=== PATIENT | female | born 2000 | race Caucasian/White ===

== ENCOUNTER 2018-08-10 22:18 | Outpatient (CLI) | payer OTHER | END 2018-08-10 22:19 | disposition critical access hospital (66) | LOC: EMS 22:18 | PROVIDERS: ATTEND Surgery | DX: S61.512A Laceration without foreign body of left wrist, initial encounter (principal); W45.8XXA Other foreign body or object entering through skin, initial encounter; Y92.009 Unspecified place in unspecified non-institutional (private) residence as the place of occurrence of the external cause | CPT/HCPCS: A0425; A0429 ==

== ENCOUNTER 2018-08-10 22:34 | Emergency (ER) | payer OTHER ==
[2018-08-10 23:02] LABS: MUDS CUTOFF CONCENTRATIONS CUTOFF CONC BELOW:
[2018-08-10 23:05] LABS: BASOPHILS # (AUTO) 0.1 10^3/uL (0.0-0.1); BASOPHILS % (AUTO) 0.8 %; EOSINOPHILS # (AUTO) 0.1 10^3/uL (0.0-0.7); EOSINOPHILS % (AUTO) 0.8 %; HGB - HEMOGLOBIN 13.3 g/dL (12.0-16.0); LYMPHOCYTES # (AUTO) 1.8 10^3/uL (1.5-3.5); LYMPHOCYTES % (AUTO) 17.7 %; MEAN CORPUSCULAR HEMOGLOBIN 31.9 pg (27.0-31.0); MEAN CORPUSCULAR HGB CONC 35.2 g/dL (32.0-36.0); MEAN CORPUSCULAR VOLUME 90.6 fL (81.0-99.0); MEAN PLATELET VOLUME 7.5 fL (7.9-10.8); MONOCYTES # (AUTO) 0.6 10^3/uL (0.0-1.0); MONOCYTES % (AUTO) 6.1 %; NEUTROPHILS # (AUTO) 7.6 10^3/uL (1.5-6.6); NEUTROPHILS % (AUTO) 74.6 %; PLT - PLATELET COUNT 302 10^3/uL (130-450); RED BLOOD COUNT 4.17 10^6/uL (4.20-5.40); RED CELL DISTRIBUTION WIDTH 12.9 % (12.0-15.0); WHITE BLOOD COUNT 10.2 x10^3/uL (4.8-10.8)
[2018-08-10 23:09] LABS: HCG UR QUAL NEGATIVE
[2018-08-10 23:14] LABS: BUN - BLOOD UREA NITROGEN 10 mg/dL (6-20); CALCIUM 8.6 mg/dL (8.5-10.3); CARBON DIOXIDE - CO2 23 mmol/L (21-32); CHLORIDE 108 mmol/L (101-111); CREATININE 0.6 mg/dL (0.4-1.0); GFR - MDRD 127 (>89); GLUCOSE 134 mg/dL (70-100); SODIUM 136 mmol/L (135-145)
[2018-08-10 23:16] LABS: AMPHETAMINE SCREEN,URINE NEGATIVE (NEGATIVE); BENZODIAZEPINES SCREEN, URINE NEGATIVE (NEGATIVE); COCAINE SCREEN URINE NEGATIVE (NEGATIVE); METHADONE SCREEN, URINE NEGATIVE (NEGATIVE); METHAMPHETAMINES SCREEN, URINE NEGATIVE (NEGATIVE); OPIATE SCREEN, URINE NEGATIVE (NEGATIVE); OXYCODONE SCREEN, URINE NEGATIVE (NEGATIVE); PROPOXYPHENE SCREEN, URINE NEGATIVE (NEGATIVE); TRICYCLIC ANTIDEPRESSANT,URINE NEGATIVE (NEGATIVE)
--- NOTE | 2018-08-10 23:54 | ED Physician Documentation ---
PD HPI MHE - Stated complaint Stated Complaint: MHE - Chief complaint Chief Complaint: Laceration - History obtained from History obtained from: Patient, EMS, Police - History of Present Illness Primary symptom: Self harm - cut Timing - onset: Today Pain level now: 0 Similar symptoms before: Other (h/o cutting behavior) Recently seen: Not recently seen - Additional information Additional information: police were called by patient's roommate; per police report (copy provided to ED and is on chart), patient posted "suicidal-like posts on social media" including "photos of cut marin that she inflicted on herself." Police report also reads "She stated she has been depressed", and "she voluntarily wanted to go the hospital to receive assistance". Patient admits to self-inflicting left wrist cuts tonight. She says she has cut herself before. She denies suicidal intent on my HPI. Review of Systems Skin: reports: Laceration (s) (left wrist) Neurologic: denies: Focal weakness, Numbness Psychiatric: reports: Depressed. denies: Suicidal (denies on my HPI/ROS) PD PAST MEDICAL HISTORY - Past Medical History Past Medical History: Yes Psych: Depression, ADD/ADHD Other Past Medical History: Suicide attempt by cutting wrists - Past Surgical History Past Surgical History: No - Present Medications Home Medications: Ambulatory Orders Medication Instructions Recorded Confirmed Methylphenidate HCl [Concerta] 54 mg PO DAILY 07/30/15 08/10/18 Sertraline [Zoloft] 25 mg PO DAILY 07/30/15 08/10/18 Bcp 08/10/18 Loratadine 1 cap PO DAILY PRN 08/10/18 08/10/18 - Allergies Allergies/Adverse Reactions: Allergies Allergy/AdvReac Type Severity Reaction Status Date / Time No Known Drug Allergies Allergy Verified 08/10/18 22:43 - Social History Does the pt smoke?: No Smoking Status: Never smoker Does the pt drink ETOH?: No Does the pt have substance abuse?: No - Immunizations Immunizations are current?: Yes - POLST Patient has POLST: No PD ED PE NORMAL - Vitals Vital signs reviewed: Yes - General General: Alert and oriented X 3, No acute distress, Well developed/nourished, Other (calm, cooperative, ) - Cardiac Cardiac: RRR, No murmur - Respiratory Respiratory: No respiratory distress, Clear bilaterally - Derm Derm: Other (multiple superficial linear lacerations to volar survace of left wrist) Results - Vitals Vitals: Vital Signs - 24 hr 08/11/18 08/11/18 01:10 06:27 Heart Rate 70 69 Respiratory 16 16 Rate Blood Pressure 112/59 L 117/60 O2 Saturation 100 99 Oxygen O2 Source Room air - Labs Labs: Laboratory Tests 08/10/18 08/10/18 08/10/18 22:53 22:53 22:58 WBC 10.2 RBC 4.17 L Hgb 13.3 Hct 37.8 MCV 90.6 MCH 31.9 H MCHC 35.2 RDW 12.9 Plt Count 302 MPV 7.5 L Neut # (Auto) 7.6 H Lymph # (Auto) 1.8 [place] # (Auto) 0.6 Eos # (Auto) 0.1 Baso # (Auto) 0.1 Absolute Nucleated RBC 0.00 Nucleated RBC % 0.0 Sodium Potassium Chloride Carbon Dioxide Anion Gap BUN Creatinine Estimated GFR (MDRD) Glucose Calcium Ur Specific [place] 1.025 Urine HCG, Qual NEGATIVE Urine Opiates Screen NEGATIVE Ur Oxycodone Screen NEGATIVE Urine Methadone Screen NEGATIVE Ur Propoxyphene Screen NEGATIVE Ur Barbiturates Screen NEGATIVE Ur Tricyclics Screen NEGATIVE Ur Phencyclidine Scrn NEGATIVE Ur Amphetamine Screen NEGATIVE U Methamphetamines Scrn NEGATIVE U Benzodiazepines Scrn NEGATIVE Urine Cocaine Screen NEGATIVE U Cannabinoids Screen NEGATIVE Ethyl Alcohol 08/10/18 22:58 WBC RBC Hgb Hct MCV MCH MCHC RDW Plt Count MPV Neut # (Auto) Lymph # (Auto) [place] # (Auto) Eos # (Auto) Baso # (Auto) Absolute Nucleated RBC Nucleated RBC % Sodium 136 Potassium 3.6 Chloride 108 Carbon Dioxide 23 Anion Gap 5.0 L BUN 10 Creatinine 0.6 Estimated GFR (MDRD) 127 Glucose 134 H Calcium 8.6 Ur Specific [place] Urine HCG, Qual Urine Opiates Screen Ur Oxycodone Screen Urine Methadone Screen Ur Propoxyphene Screen Ur Barbiturates Screen Ur Tricyclics Screen Ur Phencyclidine Scrn Ur Amphetamine Screen U Methamphetamines Scrn U Benzodiazepines Scrn Urine Cocaine Screen U Cannabinoids Screen Ethyl Alcohol < 5.0 PD MEDICAL DECISION MAKING - ED course Complexity details: reviewed results, re-evaluated patient, considered differential, d/w patient, d/w family Departure - Departure Disposition: 01 Home, Self Care Clinical Impression: Superficial laceration, Stress reaction Condition: Stable Comments: Cleanse the abrasions with soap and water and apply ointment once or twice daily. Recheck if signs of infection. Follow-up with counseling and psychiatry numbers as referred by the social work lecturer. Return if needed. Call the crisis line if needed. Discharge Date/Time: 08/11/18 12:00
[2018-08-11 06:28] VITALS: BP 117/60
--- NOTE | 2018-08-11 11:53 | ED Physician Documentation ---
ED Addendum - Addendum Addendum: 08/11/18 11:52 The patient is seen by social services aide Amber who feels the patient is good for outpatient treatment. The patient is not having any suicidal ideation now nor any feeling of anxiety where she feels the need for self-harm or self cutting. She was given referral numbers for outpatient counseling and psychiatry and will follow up with those setting up appointments. She is discharged with a safety plan incorporated with the social services aide.
== END 2018-08-11 12:00 | disposition home or self-care (01) ==
LOC: EDUNIT# → ED 22:34
DX: S61.512A Laceration without foreign body of left wrist, initial encounter (principal); X78.9XXA Intentional self-harm by unspecified sharp object, initial encounter; F43.9 Reaction to severe stress, unspecified; F32.9 Major depressive disorder, single episode, unspecified
CPT/HCPCS: 36415; 80048; 80306; 80320; 81025; 85025; 99283; 99284

== ENCOUNTER 2023-01-03 14:07 | Outpatient (CLI) | payer MEDICAID, OTHER | END 2023-01-03 23:59 | disposition short-term general hospital (02) | LOC: EMS 14:07 | DX: S00.83XA Contusion of other part of head, initial encounter (principal); R51.9 Headache, unspecified; V43.52XA Car driver injured in collision with other type car in traffic accident, initial encounter; Y92.413 State road as the place of occurrence of the external cause | CPT/HCPCS: A0425; A0429 ==